=== PATIENT | female | born 1945 | race Caucasian/White ===

== ENCOUNTER → 2017-05-10 | Outpatient (CLI) | payer OTHER | END | disposition home or self-care (01) | LOC: HKI 13:33 | DX: M17.11 Unilateral primary osteoarthritis, right knee (principal); Z96.643 Presence of artificial hip joint, bilateral | CPT/HCPCS: 73523; 73562-50 ==

== ENCOUNTER → 2017-07-19 | Outpatient (CLI) | payer OTHER | END | disposition home or self-care (01) | LOC: HKI 11:32 | DX: Z01.818 Encounter for other preprocedural examination (principal) | CPT/HCPCS: G0463 ==

== ENCOUNTER 2017-07-23 05:40 | Inpatient (IN) | payer MEDICARE, OTHER ==
[2017-07-23] MEDS: TRANEXAMIC ACID 1,000 MG in D5W 100 ML AT INCISION X1 IVPB (06:00)
[2017-07-23] MEDS: LACTATED RINGER'S 1,000 ML IV (06:00)
[2017-07-23] MEDS: CEFAZOLIN 2 GM/50 ML (PMX) 50 ML (FOR WT < 120 KG) IVPB (06:00)
[2017-07-23] MEDS: LANSOPRAZOLE 30 MG CAP PO (06:12)
[2017-07-23] MEDS: ACETAMINOPHEN 1000MG/100ML IV 100 ML IVPB (06:12)
[2017-07-23] MEDS: DEXAMETHASONE 4 MG/ML 1 ML INJ IV (06:12)
[2017-07-23] MEDS: ONDANSETRON 4 MG INJ IV ×4 (06:12→21:46)
[2017-07-23] MEDS ORDERED: POLYMYXIN B 500000 UNIT INJ (06:46)
[2017-07-23] MEDS ORDERED: BACITRACIN 50000 UNITS INJ (06:48)
[2017-07-23] MEDS ORDERED: FENTAnyl 50 MCG/ML VIAL IV ×3 (08:00)
[2017-07-23] MEDS ORDERED: MIDAZOLAM 1 MG/ML 2 ML INJ IV (08:00)
[2017-07-23] MEDS ORDERED: ONDANSETRON 4 MG INJ IV (08:00)
[2017-07-23] MEDS ORDERED: ALBUTEROL 0.083% (NEB) 2.5 MG/3 ML AMP HHN (08:00)
[2017-07-23] MEDS ORDERED: METOCLOPRAMIDE 10 MG INJ IV (08:00)
[2017-07-23] MEDS ORDERED: OXYCODONE/ACETAMINOPHEN (5/325) TAB PO ×2 (08:00)
[2017-07-23] MEDS ORDERED: hydrALAzine 20 MG INJ IV (08:00)
[2017-07-23] MEDS ORDERED: KETOROLAC 30 MG INJ IV (08:00)
[2017-07-23] MEDS ORDERED: LABETALOL HCL 20MG INJ IV (08:00)
[2017-07-23] MEDS ORDERED: HYDROmorphONE (0.2 MG/ML) 10ML SYG IV ×2 (08:00)
[2017-07-23] MEDS ORDERED: MIDAZOLAM 1 MG/ML 2 ML INJ (08:08)
[2017-07-23] MEDS ORDERED: FENTAnyl 50 MCG/ML VIAL (08:10)
[2017-07-23] MEDS ORDERED: LIDOCAINE 2% (SDV) 5 ML INJ (08:29)
[2017-07-23] MEDS ORDERED: PHENYLephrine (100 MCG/ML) 5ML SYG (08:29)
[2017-07-23] MEDS ORDERED: PROPOFOL 20 ML (08:29)
[2017-07-23] MEDS ORDERED: ROCURONIUM 50 MG INJ ×3 (08:29→10:00)
[2017-07-23] MEDS: POLYMYXIN/BACITRACIN 1L IRRIG (08:32)
[2017-07-23] MEDS ORDERED: DEXAMETHASONE 4 MG/ML 1 ML INJ (08:42)
[2017-07-23] MEDS ORDERED: ONDANSETRON 4 MG INJ (08:42)
[2017-07-23] MEDS: TRANEXAMIC ACID 1,000 MG in D5W 100 ML AT CLOSURE X1 IVPB (09:12)
[2017-07-23] MEDS ORDERED: ROPIVACAINE 0.5 % 30 ML VIAL (10:10)
[2017-07-23] MEDS ORDERED: SUGAMMADEX SODIUM 200 MG/2 ML VIAL IV (10:29)
[2017-07-23] MEDS ORDERED: BISACODYL 10 MG SUPP PR (10:30)
[2017-07-23] MEDS ORDERED: ZOLPIDEM 5 MG TAB PO (10:30)
[2017-07-23] MEDS ORDERED: NA PHOSPHATE/BIPHOS 133 ML ENEMA PR (10:30)
[2017-07-23] MEDS ORDERED: oxyCODONE 5 MG TAB PO (10:30)
[2017-07-23] MEDS ORDERED: BETHANECHOL 25 MG TAB PO (10:30)
[2017-07-23] MEDS ORDERED: SENNA/DOCUSATE NA (8.6MG/50MG) TAB PO (10:30)
[2017-07-23] MEDS ORDERED: NALOXONE (0.4 MG/ML) INJ IV (10:30)
[2017-07-23] MEDS ORDERED: MAGNESIUM HYDROXIDE 30ML CUP PO (10:30)
[2017-07-23] MEDS ORDERED: TRIMETHOBENZAMIDE 100 MG/ML VIAL IM (10:30)
[2017-07-23] MEDS: EPHEDrine SULFATE 50 MG/5 ML SYG IV (11:04)
[2017-07-23] MEDS: HYDROmorphONE (0.2 MG/ML) 10ML SYG IV (11:05)
[2017-07-23] MEDS: SOD CHLORIDE 0.9% 1,000 ML IV ×2 (11:09→22:49)
[2017-07-23] MEDS: CEFAZOLIN 1 GM/50 ML (PMX) 50 ML IVPB ×2 (11:17→18:02)
[2017-07-23] MEDS: DIPHENHYDRAMINE 50 MG INJ IV (11:18)
[2017-07-23] MEDS: DOCUSATE SODIUM 100 MG CAP PO (11:48)
[2017-07-23] MEDS: MEPERIDINE 25 MG INJ IV (11:49)
[2017-07-23] MEDS: ASPIRIN (EC) 325 MG TAB PO (11:49)
[2017-07-23] MEDS ORDERED: LORAZEPAM 2 MG INJ IV (12:30)
[2017-07-23] MEDS: KETOROLAC 15 MG INJ IV (18:02)
[2017-07-23] MEDS: GABAPENTIN 100 MG CAP PO (20:33)
[2017-07-23] MEDS: CELECOXIB 100 MG CAP PO (20:33)
[2017-07-23] MEDS: oxyCODONE 5 MG TAB PO (20:33)
[2017-07-24] MEDS: KETOROLAC 15 MG INJ IV ×3 (00:58→21:30)
[2017-07-24] MEDS: CEFAZOLIN 1 GM/50 ML (PMX) 50 ML IVPB (01:57)
[2017-07-24] MEDS: SODIUM CHLORIDE 0.9% 1L BAG IV* (02:57)
[2017-07-24] MEDS: ONDANSETRON 4 MG INJ IV (03:54)
[2017-07-24] MEDS: LACTATED RINGER'S 1,000 ML IV (05:31)
[2017-07-24] MEDS: oxyCODONE 5 MG TAB PO ×4 (05:32→23:24)
[2017-07-24 05:51] LABS: ADD MAN DIFF? NO
[2017-07-24 05:54] LABS: WHITE BLOOD COUNT 7.5 10^3/ul (4.8-10.8)
[2017-07-24 05:54] LABS: BASOPHILS % 0.1 % (0.0-2.0); EOSINOPHILS % 0.5 % (0.0-7.0); HEMATOCRIT 22.1 % (37.0-47.0); HEMOGLOBIN 7.1 g/dl (12.0-16.0); LYMPHOCYTES # 1.3 10^3/ul (0.8-2.9); LYMPHOCYTES % 17.5 % (15.0-51.0); MEAN CORPUSCULAR HEMOGLOBIN 31.4 pg (29.0-33.0); MEAN CORPUSCULAR HGB CONC 32.1 g/dl (32.0-37.0); MEAN CORPUSCULAR VOLUME 97.8 fl (82.0-101.0); MEAN PLATELET VOLUME 11.5 fl (7.4-10.4); MONOCYTE # 0.7 10^3/ul (0.3-0.9); MONOCYTES % 9.4 % (0.0-11.0); NEUTROPHIL # 5.4 10^3/ul (1.6-7.5); NEUTROPHILS % 72.1 % (39.0-77.0); PLATELET COUNT 130 10^3/UL (140-415); RED BLOOD COUNT 2.26 10^6/ul (4.20-5.40)
[2017-07-24 06:35] LABS: ANION GAP 11 (8-16); BLOOD UREA NITROGEN 9 mg/dl (7-20); CALCIUM 6.9 mg/dl (8.4-10.2); CARBON DIOXIDE 18 mmol/L (21-31); CHLORIDE 117 mmol/L (97-110); CREATININE 0.59 mg/dl (0.44-1.00); GLUCOSE 119 mg/dl (70-220); POTASSIUM 3.1 mmol/L (3.5-5.1); SODIUM 143 mmol/L (135-144)
[2017-07-24] MEDS: SOD CHLORIDE 0.9% 500 ML IV (07:22)
[2017-07-24] MEDS: SOD CHLORIDE 0.9% 1,000 ML IV ×3 (08:53→14:54)
[2017-07-24 09:30] LABS: IMMEDIATE SPIN CROSSMATCH 1 1
[2017-07-24] MEDS ORDERED: DOPamine-D5W 1.6 MG/ML 250 ML (09:49)
[2017-07-24] MEDS: DOPamine-D5W 1.6 MG/ML 250 ML IV (10:00)
[2017-07-24] MEDS: POTASSIUM CHLORIDE 100 ML IVPB ×2 (10:16→12:25)
[2017-07-24] MEDS: INFLUENZA VIRUS VACCINE 0.5 ML SYG IM* (12:00)
[2017-07-24] MEDS: DOCUSATE SODIUM 100 MG CAP PO ×2 (13:54→20:48)
[2017-07-24] MEDS: GABAPENTIN 100 MG CAP PO ×2 (13:54→20:48)
[2017-07-24] MEDS: ASPIRIN (EC) 325 MG TAB PO (13:54)
[2017-07-24] MEDS ORDERED: POTASSIUM CHLORIDE 100 ML IVPB (14:30)
[2017-07-24] MEDS: FERROUS FUMARATE (SR) TAB PO ×2 (14:54→20:48)
[2017-07-24] MEDS: CELECOXIB 100 MG CAP PO ×2 (14:54→20:48)
[2017-07-24 14:56] LABS: HEMATOCRIT 31.6 % (37.0-47.0); HEMOGLOBIN 10.4 g/dl (12.0-16.0)
[2017-07-24] MEDS ORDERED: INFLUENZA VIRUS VACCINE 0.5 ML SYG IM* (15:00)
[2017-07-24 16:27] LABS: ANION GAP 11 (8-16); BLOOD UREA NITROGEN 8 mg/dl (7-20); CALCIUM 8.3 mg/dl (8.4-10.2); CARBON DIOXIDE 25 mmol/L (21-31); CHLORIDE 112 mmol/L (97-110); CREATININE 0.69 mg/dl (0.44-1.00); GLUCOSE 125 mg/dl (70-220); POTASSIUM 4.3 mmol/L (3.5-5.1); SODIUM 144 mmol/L (135-144)
[2017-07-25] MEDS: SOD CHLORIDE 0.9% 1,000 ML IV (00:32)
[2017-07-25] MEDS: DOPamine-D5W 1.6 MG/ML 250 ML IV ×2 (00:34→13:52)
[2017-07-25] MEDS: oxyCODONE 5 MG TAB PO ×6 (04:07→22:28)
[2017-07-25] MEDS: DIPHENHYDRAMINE 50 MG INJ IV (04:42)
[2017-07-25 05:22] LABS: ADD MAN DIFF? NO
[2017-07-25 05:25] LABS: WHITE BLOOD COUNT 6.8 10^3/ul (4.8-10.8)
[2017-07-25 05:25] LABS: BASOPHIL # 0.1 10^3/ul (0.0-0.1); EOSINOPHILS # 0.3 10^3/ul (0.0-0.5); EOSINOPHILS % 3.7 % (0.0-7.0); HEMATOCRIT 29.5 % (37.0-47.0); LYMPHOCYTES # 1.6 10^3/ul (0.8-2.9); MEAN CORPUSCULAR HEMOGLOBIN 31.7 pg (29.0-33.0); MEAN CORPUSCULAR HGB CONC 33.9 g/dl (32.0-37.0); MEAN CORPUSCULAR VOLUME 93.7 fl (82.0-101.0); MEAN PLATELET VOLUME 11.8 fl (7.4-10.4); MONOCYTE # 0.7 10^3/ul (0.3-0.9); MONOCYTES % 9.5 % (0.0-11.0); NEUTROPHIL # 4.2 10^3/ul (1.6-7.5); NEUTROPHILS % 61.7 % (39.0-77.0); PLATELET COUNT 162 10^3/UL (140-415); RED BLOOD COUNT 3.15 10^6/ul (4.20-5.40); RED CELL DISTRIBUTION WIDTH 13.9 % (11.5-14.5)
[2017-07-25 05:46] LABS: ANION GAP 11 (8-16); BLOOD UREA NITROGEN 7 mg/dl (7-20); CALCIUM 8.5 mg/dl (8.4-10.2); CARBON DIOXIDE 29 mmol/L (21-31); CHLORIDE 105 mmol/L (97-110); CREATININE 0.64 mg/dl (0.44-1.00); GLUCOSE 144 mg/dl (70-220); POTASSIUM 3.7 mmol/L (3.5-5.1); SODIUM 141 mmol/L (135-144)
[2017-07-25 05:49] LABS: MAGNESIUM 1.5 mg/dl (1.7-2.5)
[2017-07-25] MEDS: PANTOPRAZOLE (EC) 40 MG TAB PO (06:45)
[2017-07-25] MEDS: SOD CHLORIDE 0.9% 500 ML IV ×4 (07:00→20:41)
[2017-07-25] MEDS ORDERED: ONDANSETRON 4 MG INJ (08:29)
[2017-07-25] MEDS: ONDANSETRON 4 MG INJ IV (08:32)
[2017-07-25] MEDS: FERROUS FUMARATE (SR) TAB PO ×2 (08:44→20:38)
[2017-07-25] MEDS: GABAPENTIN 100 MG CAP PO ×2 (08:45→20:38)
[2017-07-25] MEDS: DOCUSATE SODIUM 100 MG CAP PO ×2 (08:45→20:38)
[2017-07-25] MEDS: ASPIRIN (EC) 325 MG TAB PO (08:48)
[2017-07-25] MEDS: CELECOXIB 100 MG CAP PO ×2 (10:05→20:38)
[2017-07-25] MEDS: MAGNESIUM SULFATE 3 GM in DEXTROSE 5% 100 ML IVPB (10:06)
[2017-07-26] MEDS: SOD CHLORIDE 0.9% 500 ML IV ×5 (00:50→21:34)
[2017-07-26] MEDS: oxyCODONE 5 MG TAB PO ×4 (02:32→21:33)
[2017-07-26] MEDS: PANTOPRAZOLE (EC) 40 MG TAB PO (05:25)
[2017-07-26 05:48] LABS: ADD MAN DIFF? NO
[2017-07-26 05:56] LABS: BASOPHIL # 0.1 10^3/ul (0.0-0.1); BASOPHILS % 0.9 % (0.0-2.0); EOSINOPHILS # 0.3 10^3/ul (0.0-0.5); EOSINOPHILS % 4.3 % (0.0-7.0); HEMATOCRIT 28.8 % (37.0-47.0); HEMOGLOBIN 9.7 g/dl (12.0-16.0); LYMPHOCYTES # 1.7 10^3/ul (0.8-2.9); LYMPHOCYTES % 24.4 % (15.0-51.0); MEAN CORPUSCULAR HEMOGLOBIN 31.2 pg (29.0-33.0); MEAN CORPUSCULAR HGB CONC 33.7 g/dl (32.0-37.0); MEAN CORPUSCULAR VOLUME 92.6 fl (82.0-101.0); MEAN PLATELET VOLUME 11.4 fl (7.4-10.4); MONOCYTE # 0.6 10^3/ul (0.3-0.9); MONOCYTES % 8.5 % (0.0-11.0); NEUTROPHIL # 4.3 10^3/ul (1.6-7.5); NEUTROPHILS % 61.8 % (39.0-77.0); PLATELET COUNT 158 10^3/UL (140-415); RED BLOOD COUNT 3.11 10^6/ul (4.20-5.40); RED CELL DISTRIBUTION WIDTH 13.2 % (11.5-14.5)
[2017-07-26 06:33] LABS: MAGNESIUM 1.8 mg/dl (1.7-2.5)
[2017-07-26] MEDS: ONDANSETRON 4 MG INJ IV ×2 (06:38→21:33)
[2017-07-26 06:49] LABS: ANION GAP 12 (8-16); BLOOD UREA NITROGEN 8 mg/dl (7-20); CALCIUM 8.5 mg/dl (8.4-10.2); CARBON DIOXIDE 29 mmol/L (21-31); CHLORIDE 102 mmol/L (97-110); CREATININE 0.57 mg/dl (0.44-1.00); GLUCOSE 116 mg/dl (70-220); POTASSIUM 3.8 mmol/L (3.5-5.1); SODIUM 139 mmol/L (135-144)
[2017-07-26] MEDS: DOPamine-D5W 1.6 MG/ML 250 ML IV (08:55)
[2017-07-26] MEDS: INFLUENZA VIRUS VACCINE 0.5 ML SYG IM* (09:00)
[2017-07-26] MEDS: DOCUSATE SODIUM 100 MG CAP PO (09:00)
[2017-07-26] MEDS: FERROUS FUMARATE (SR) TAB PO ×2 (09:18→21:35)
[2017-07-26] MEDS: CELECOXIB 100 MG CAP PO ×2 (09:18→21:33)
[2017-07-26] MEDS: GABAPENTIN 100 MG CAP PO ×2 (09:18→21:33)
[2017-07-26] MEDS: ASPIRIN (EC) 325 MG TAB PO (10:27)
[2017-07-26] MEDS: MAGNESIUM SULFATE 2 GM/50 ML 50 ML IVPB (10:30)
[2017-07-26] MEDS: METHYLPREDNISOLONE 125 MG INJ IV ×2 (18:49→21:33)
[2017-07-27] MEDS: PANTOPRAZOLE (EC) 40 MG TAB PO (05:44)
[2017-07-27] MEDS: ONDANSETRON 4 MG INJ IV (05:44)
[2017-07-27] MEDS: oxyCODONE 5 MG TAB PO ×2 (05:44→20:10)
[2017-07-27 06:05] LABS: ADD MAN DIFF? NO
[2017-07-27 06:15] LABS: WHITE BLOOD COUNT 5.3 10^3/ul (4.8-10.8)
[2017-07-27 06:15] LABS: ABNORMAL IP MESSAGE 1; BASOPHILS % 0.2 % (0.0-2.0); EOSINOPHILS % 0.2 % (0.0-7.0); HEMATOCRIT 27.6 % (37.0-47.0); HEMOGLOBIN 9.2 g/dl (12.0-16.0); LYMPHOCYTES # 0.5 10^3/ul (0.8-2.9); LYMPHOCYTES % 9.7 % (15.0-51.0); MEAN CORPUSCULAR HEMOGLOBIN 30.9 pg (29.0-33.0); MEAN CORPUSCULAR HGB CONC 33.3 g/dl (32.0-37.0); MEAN CORPUSCULAR VOLUME 92.6 fl (82.0-101.0); MEAN PLATELET VOLUME 11.5 fl (7.4-10.4); MONOCYTE # 0.1 10^3/ul (0.3-0.9); MONOCYTES % 1.7 % (0.0-11.0); NEUTROPHIL # 4.7 10^3/ul (1.6-7.5); PLATELET COUNT 158 10^3/UL (140-415); RED BLOOD COUNT 2.98 10^6/ul (4.20-5.40); RED CELL DISTRIBUTION WIDTH 13.1 % (11.5-14.5)
[2017-07-27 06:17] LABS: POSITIVE DIFF @See below
[2017-07-27 06:34] LABS: ANION GAP 10 (8-16); BLOOD UREA NITROGEN 9 mg/dl (7-20); CALCIUM 8.2 mg/dl (8.4-10.2); CARBON DIOXIDE 31 mmol/L (21-31); CHLORIDE 105 mmol/L (97-110); CREATININE 0.55 mg/dl (0.44-1.00); GLUCOSE 152 mg/dl (70-220); POTASSIUM 3.8 mmol/L (3.5-5.1); SODIUM 142 mmol/L (135-144)
[2017-07-27] MEDS: SOD CHLORIDE 0.9% 500 ML IV (06:46)
[2017-07-27 07:22] LABS: MAGNESIUM 2.1 mg/dl (1.7-2.5)
[2017-07-27] MEDS: GABAPENTIN 100 MG CAP PO ×2 (08:39→21:07)
[2017-07-27] MEDS: CELECOXIB 100 MG CAP PO ×2 (08:39→21:07)
[2017-07-27] MEDS: METHYLPREDNISOLONE 125 MG INJ IV ×2 (08:39→21:07)
[2017-07-27] MEDS: FERROUS FUMARATE (SR) TAB PO ×2 (08:39→21:07)
[2017-07-27] MEDS: ASPIRIN (EC) 325 MG TAB PO (08:39)
[2017-07-28 01:41] LABS: ADD UMIC YES; UR ASCORBIC ACID NEGATIVE (NEGATIVE); UR BACTERIA FEW /HPF (NONE SEEN); UR BILIRUBIN (Dip) NEGATIVE (NEGATIVE); UR BLOOD (Dip) 3+ mg/dL (NEGATIVE); UR CLARITY SLIGHTLY CLOUDY (CLEAR); UR COLOR YELLOW (YELLOW); UR GLUCOSE (Dip) NEGATIVE (NEGATIVE); UR KETONES (Dip) TRACE mg/dL (NEGATIVE); UR LEUKOCYTE ESTERASE (Dip) 2+ Leu/ul (NEGATIVE); UR NITRITE (Dip) POSITIVE (NEGATIVE); UR RBC > 182 /HPF (0-5); UR TOTAL PROTEIN (Dip) 1+ mg/dl (NEGATIVE); UR UROBILINOGEN (Dip) NEGATIVE (NEGATIVE); UR WBC 77 /HPF (0-5)
[2017-07-28 04:57] LABS: ADD MAN DIFF? NO
[2017-07-28 05:02] LABS: WHITE BLOOD COUNT 6.9 10^3/ul (4.8-10.8)
[2017-07-28 05:02] LABS: HEMATOCRIT 26.9 % (37.0-47.0); HEMOGLOBIN 9.1 g/dl (12.0-16.0); LYMPHOCYTES # 0.7 10^3/ul (0.8-2.9); MEAN CORPUSCULAR HEMOGLOBIN 31.4 pg (29.0-33.0); MEAN CORPUSCULAR HGB CONC 33.8 g/dl (32.0-37.0); MEAN CORPUSCULAR VOLUME 92.8 fl (82.0-101.0); MEAN PLATELET VOLUME 11.5 fl (7.4-10.4); MONOCYTE # 0.1 10^3/ul (0.3-0.9); MONOCYTES % 1.9 % (0.0-11.0); NEUTROPHIL # 6.1 10^3/ul (1.6-7.5); NEUTROPHILS % 87.8 % (39.0-77.0); PLATELET COUNT 182 10^3/UL (140-415); RED CELL DISTRIBUTION WIDTH 13.2 % (11.5-14.5)
[2017-07-28 05:28] LABS: ANION GAP 12 (8-16); BLOOD UREA NITROGEN 18 mg/dl (7-20); CALCIUM 8.5 mg/dl (8.4-10.2); CARBON DIOXIDE 29 mmol/L (21-31); CHLORIDE 106 mmol/L (97-110); CREATININE 0.66 mg/dl (0.44-1.00); GLUCOSE 147 mg/dl (70-220); POTASSIUM 3.8 mmol/L (3.5-5.1); SODIUM 143 mmol/L (135-144)
[2017-07-28] MEDS: PANTOPRAZOLE (EC) 40 MG TAB PO (06:25)
[2017-07-28] MEDS: METHYLPREDNISOLONE 125 MG INJ IV (08:02)
[2017-07-28] MEDS: oxyCODONE 5 MG TAB PO ×3 (08:02→15:09)
[2017-07-28] MEDS: ASPIRIN (EC) 325 MG TAB PO (08:04)
[2017-07-28] MEDS: CELECOXIB 100 MG CAP PO (08:04)
[2017-07-28] MEDS: FERROUS FUMARATE (SR) TAB PO (08:05)
[2017-07-28] MEDS: GABAPENTIN 100 MG CAP PO (08:07)
[2017-07-28] MEDS: CEFTRIAXONE 1 GM/50 ML (PMX) 50 ML IVPB (16:24)
== END 2017-07-28 17:25 | disposition home health service (06) | DRG 470 ==
LOC: REC 05:40 → ICU 07-24 08:32 → MS1 07-28 11:18
PROC: 0SRC0J9 Replacement of Right Knee Joint with Synthetic Substitute, Cemented, Open Approach (ICD-10-PCS; principal; 2017-07-23 08:00)
PROC: 06HM33Z Insertion of Infusion Device into Right Femoral Vein, Percutaneous Approach (ICD-10-PCS; 2017-07-23 08:00)
PROC: B54BZZA Ultrasonography of Right Lower Extremity Veins, Guidance (ICD-10-PCS; 2017-07-23 08:00)
PROC: 30233N1 Transfusion of Nonautologous Red Blood Cells into Peripheral Vein, Percutaneous Approach (ICD-10-PCS; 2017-07-23 08:00)
DX: M17.11 Unilateral primary osteoarthritis, right knee (principal); D62 Acute posthemorrhagic anemia; I27.20 Pulmonary hypertension, unspecified; N39.0 Urinary tract infection, site not specified; F41.9 Anxiety disorder, unspecified; E87.6 Hypokalemia; E83.42 Hypomagnesemia; I95.81 Postprocedural hypotension
CPT/HCPCS: 36430; 71045; 73560; 80048; 81001; 82533; 82962; 83735; 85014; 85018; 85025; 86850; 86900; 86901; 86920; 87081; 87086; 88304; 88311; 90686; 93005; 93306; 97110; 97116; 97162; 97164; 97530

== ENCOUNTER → 2017-08-09 | Outpatient (CLI) | payer OTHER | END | disposition home or self-care (01) | LOC: HKI 15:09 | DX: Z09 Encounter for follow-up examination after completed treatment for conditions other than malignant neoplasm (principal); M25.561 Pain in right knee; R22.42 Localized swelling, mass and lump, left lower limb; Z96.651 Presence of right artificial knee joint | CPT/HCPCS: 73560; 73560-RT ==

== ENCOUNTER → 2017-09-09 | Outpatient (CLI) | payer OTHER | END | disposition home or self-care (01) | LOC: HKI 13:27 | DX: Z09 Encounter for follow-up examination after completed treatment for conditions other than malignant neoplasm (principal); Z96.651 Presence of right artificial knee joint; M25.561 Pain in right knee | CPT/HCPCS: 73560; 73560-RT ==

== ENCOUNTER → 2017-10-14 | Outpatient (CLI) | payer OTHER | END | disposition home or self-care (01) | LOC: HKI 09:49 | DX: Z47.1 Aftercare following joint replacement surgery (principal); Z96.651 Presence of right artificial knee joint | CPT/HCPCS: 73560; 73560-RT ==

== ENCOUNTER → 2018-01-06 | Outpatient (CLI) | payer OTHER | END | disposition home or self-care (01) | LOC: HKI 09:49 | DX: Z09 Encounter for follow-up examination after completed treatment for conditions other than malignant neoplasm (principal); M25.561 Pain in right knee; Z96.651 Presence of right artificial knee joint | CPT/HCPCS: 73522; 73562-RT ==

== ENCOUNTER 2018-06-16 10:04 | Emergency (ER) | payer OTHER ==
[2018-06-16 11:03] LABS: ADD UMIC NO; UR ASCORBIC ACID 20 mg/dL (NEGATIVE); UR BILIRUBIN (Dip) NEGATIVE (NEGATIVE); UR BLOOD (Dip) NEGATIVE (NEGATIVE); UR CLARITY CLEAR (CLEAR); UR COLOR AMBER (YELLOW); UR GLUCOSE (Dip) NEGATIVE (NEGATIVE); UR KETONES (Dip) TRACE mg/dL (NEGATIVE); UR LEUKOCYTE ESTERASE (Dip) NEGATIVE Leu/ul (NEGATIVE); UR NITRITE (Dip) NEGATIVE (NEGATIVE); UR SPECIFIC GRAVITY (Dip) 1.016 (1.003-1.030); UR TOTAL PROTEIN (Dip) NEGATIVE (NEGATIVE); UR UROBILINOGEN (Dip) NEGATIVE (NEGATIVE)
[2018-06-16] MEDS: ACETAMINOPHEN 325 MG TAB PO (11:21)
[2018-06-16 11:25] LABS: ADD MAN DIFF? NO
[2018-06-16 11:36] LABS: WHITE BLOOD COUNT 10.1 10^3/ul (4.8-10.8)
[2018-06-16 11:36] LABS: BASOPHIL # 0.1 10^3/ul (0.0-0.1); BASOPHILS % 0.6 % (0.0-2.0); EOSINOPHILS # 0.2 10^3/ul (0.0-0.5); HEMATOCRIT 33.9 % (37.0-47.0); HEMOGLOBIN 10.8 g/dl (12.0-16.0); LYMPHOCYTES # 3.2 10^3/ul (0.8-2.9); LYMPHOCYTES % 31.1 % (15.0-51.0); MEAN CORPUSCULAR HEMOGLOBIN 29.8 pg (29.0-33.0); MEAN CORPUSCULAR HGB CONC 31.9 g/dl (32.0-37.0); MEAN CORPUSCULAR VOLUME 93.6 fl (82.0-101.0); MEAN PLATELET VOLUME 10.2 fl (7.4-10.4); MONOCYTES % 10.2 % (0.0-11.0); NEUTROPHIL # 5.7 10^3/ul (1.6-7.5); NEUTROPHILS % 55.8 % (39.0-77.0); PLATELET COUNT 323 10^3/UL (140-415); RED BLOOD COUNT 3.62 10^6/ul (4.20-5.40); RED CELL DISTRIBUTION WIDTH 12.8 % (11.5-14.5)
[2018-06-16 11:52] LABS: ANION GAP 6 (5-13); BLOOD UREA NITROGEN 10 mg/dl (7-20); C-REACTIVE PROTEIN 6.7 mg/dl (0.0-0.9); CALCIUM 9.4 mg/dl (8.4-10.2); CARBON DIOXIDE 27 mmol/L (21-31); CHLORIDE 105 mmol/L (97-110); CREATININE 0.48 mg/dl (0.44-1.00); GLUCOSE 94 mg/dl (70-220); POTASSIUM 3.4 mmol/L (3.5-5.1); SODIUM 138 mmol/L (135-144)
[2018-06-16 13:05] LABS: ERYTHROCYTE SEDIMENTATION RATE 79 mm/Hr (0-30)
[2018-06-16] MEDS: PIPER-TAZO 3.375 GM IV (PMX) 100 ML IVPB (13:32)
[2018-06-16] MEDS: VANCOMYCIN 1 GM (PMX) 250 ML IVPB (14:17)
[2018-06-16] MEDS: KETOROLAC 30 MG INJ IV (19:18)
== END 2018-06-16 19:36 | disposition home or self-care (01) ==
LOC: FTE 10:04
DX: L03.114 Cellulitis of left upper limb (principal); R50.9 Fever, unspecified; Z96.643 Presence of artificial hip joint, bilateral; Z79.82 Long term (current) use of aspirin
CPT/HCPCS: 29125; 36415; 73110-LT; 80048; 81003; 84560; 85025; 85651; 86140; 87040; 87086; 96374; 96375; 99284-25

== ENCOUNTER → 2018-07-14 | Outpatient (CLI) | payer OTHER | END | disposition home or self-care (01) | LOC: HKI 09:56 | DX: M25.561 Pain in right knee (principal); R22.41 Localized swelling, mass and lump, right lower limb; Z96.651 Presence of right artificial knee joint | CPT/HCPCS: 73560; 73560-RT ==